=== PATIENT | male | born 1945 | race Caucasian/White ===

== ENCOUNTER 2019-01-16 15:45 | Inpatient (IN) | payer MEDICARE ==
[~2019-01-16] VITALS: Ht 175.3 cm; Wt 75.0 kg
[2019-01-16] MEDS ORDERED: iohexol 350MG/ML 100ml bottle IV ONE (16:36)
[2019-01-16 16:38] LABS: BASOPHILS % (AUTO) 0.4 % (0-1); EOSINOPHILS # (AUTO) 0.1 X10'3 (0-0.9); EOSINOPHILS % (AUTO) 0.8 % (0-6); HEMATOCRIT 38.5 % (42.0-52.0); LYMPHOCYTES # (AUTO) 1.1 X10'3 (1.1-4.8); LYMPHOCYTES % (AUTO) 10.8 % (21-51); MEAN CORPUSCULAR HEMOGLOBIN 33.2 PG (27.0-31.0); MEAN CORPUSCULAR HGB CONC 33.8 g/dL (33.0-36.5); MEAN CORPUSCULAR VOLUME 98.2 FL (78-98); MEAN PLATELET VOLUME 8.9 FL (7.4-10.4); MONOCYTES # (AUTO) 0.7 X10'3 (0-0.9); MONOCYTES % (AUTO) 6.6 % (2-12); NEUTROPHILS # (AUTO) 8.1 X10'3 (1.8-7.7); NEUTROPHILS % (AUTO) 81.4 % (42-75); PLATELET COUNT 171 X10'3 (140-440); RED BLOOD COUNT 3.92 X10'6 (4.70-6.10); RED CELL DISTRIBUTION WIDTH 13.7 % (11.5-14.5)
[2019-01-16] MEDS ORDERED: ipratropium/albuterol 3ml nebule NEB ONE (16:40)
[2019-01-16] MEDS ORDERED: acetaminophen 325mg tablet PO STA (16:50)
[2019-01-16 16:52] LABS: ALANINE AMINOTRANSFERASE 42 U/L (12-78); ALBUMIN 3.8 G/DL (3.4-5.0); ALBUMIN/GLOBULIN RATIO 1.2 (1.1-1.5); ALKALINE PHOSPHATASE 32 IU/L (46-116); ANION GAP 10 (8-16); ASPARTATE AMINO TRANSFERASE 20 U/L (10-37); BLOOD UREA NITROGEN 18 MG/DL (7-18); BUN/CREATININE RATIO 12.2 (5.4-32.0); CALCIUM 8.9 MG/DL (8.5-10.1); CHLORIDE 103 MMOL/L (99-107); CREATININE 1.47 MG/DL (0.60-1.10); GLUCOSE 127 MG/DL (70-104); POTASSIUM 3.3 MMOL/L (3.5-5.1); SODIUM 139 MMOL/L (135-145); TOTAL CARBON DIOXIDE 25.7 MMOL/L (24-32); TOTAL PROTEIN 7.1 G/DL (6.4-8.2); eGFR 47 ML/MIN
[2019-01-16 16:57] LABS: PARTIAL THROMBOPLASTIN TIME 33 SECONDS (22-32)
--- NOTE | 2019-01-16 18:09 | NUR ---
SPOKE WITH DIANE ABOUT K3.[address] ORDER FOR REPLACEMENT.
[2019-01-16] MEDS ORDERED: TRUSOPT EACHEYE (18:26)
[2019-01-16] MEDS ORDERED: LEVA15HF4 INH (18:26)
[2019-01-16] MEDS ORDERED: METOPROLOL PO (18:26)
[2019-01-16] MEDS ORDERED: XAL0.005OS OP (18:26)
[2019-01-16] MEDS ORDERED: TEST1.25 TD (18:26)
[2019-01-16] MEDS ORDERED: ATOR40TA7 PO (18:26)
[2019-01-16] MEDS ORDERED: FLUT1BLS3 PO (18:26)
[2019-01-16] MEDS ORDERED: FLUT16SP2 BOTHNARES (18:26)
[2019-01-16] MEDS ORDERED: LASIX PO (18:26)
[2019-01-16] MEDS ORDERED: OCUVITE PO (18:26)
[2019-01-16] MEDS ORDERED: LACT1CAP65 PO (18:26)
[2019-01-16] MEDS ORDERED: AMOX-422 PO (18:26)
[2019-01-16] MEDS ORDERED: potassium Cl 20 mEq SR tablet PO PRN ×2 (19:55)
[2019-01-16] MEDS ORDERED: ondansetron/PF 4mg/2ml inj IV PRN (19:55)
[2019-01-16] MEDS ORDERED: potassium CL 10mEq/100ml bag 100 ML IV PRN (19:55)
[2019-01-16] MEDS ORDERED: magnesium 2GM in 50ml NS 50 ML IV PRN (19:55)
[2019-01-16] MEDS ORDERED: bisacodyl 10mg suppository rectal RC PRN (19:55)
[2019-01-16] MEDS ORDERED: mag hydrox/Alum hydrox/simeth 30ml oral suspension PO PRN (19:55)
[2019-01-16] MEDS: K and/or MAG REPLACEMENT MC SCH (19:55)
[2019-01-16] MEDS ORDERED: magnesium Cl slow-release 64mg tablet PO PRN (19:55)
[2019-01-16] MEDS ORDERED: magnesium hydroxide 30ml (MOM) UD suspension PO PRN (19:55)
[2019-01-16] MEDS ORDERED: acetaminophen 325mg tablet PO PRN (19:55)
[2019-01-16] MEDS ORDERED: potassium Cl 40MEQ/NS 500ml 500 ML IV PRN (19:55)
[2019-01-16] MEDS ORDERED: magnesium 4gm in 100ml NS 100 ML IV PRN (19:55)
[2019-01-16] MEDS: docusate sod 100mg capsule PO SCH (20:00)
[2019-01-16] MEDS ORDERED: albuterol 2.5 MG/3 ML nebule NEB PRN (20:00)
[2019-01-16] MEDS: dorzolamide 2% ophthalmic drops 10ml EACHEYE SCH (20:00)
[2019-01-16] MEDS ORDERED: non-formulary drug (Levalbuterol Tartrate (Xopenex Hfa) 2 PUFFS) INH SCH (20:00)
[2019-01-16] MEDS: levoFLOXACIN-Levaquin 500mg/D5 100 ML IV SCH (20:36)
[2019-01-16] MEDS: furosemide 20 MG/2 ML vial IV SCH (20:42)
[2019-01-16] MEDS: heparin, porcine 5000 units/ml vial SQ SCH (20:42)
[2019-01-16] MEDS: potassium Cl 20 mEq SR tablet PO SCH (20:54)
[2019-01-16] MEDS ORDERED: atorvastatin 20mg tablet PO SCH (21:00)
[2019-01-16] MEDS: albuterol 2.5 MG/3 ML nebule NEB SCH ×2 (21:36→21:43)
[2019-01-16 22:55] LABS: CLARITY,URINE CLEAR (Clear); COLOR,URINE YELLOW (Yellow); GLUCOSE, URINE NEGATIVE (Neg); KETONES,URINE NEGATIVE (Neg); LEUKOCYTE ESTERASE ,URINE NEGATIVE (Neg); NITRITES, URINE NEGATIVE (Neg); OCCULT BLOOD,URINE NEGATIVE (Neg); PH,URINE 5.5 (4.8-8.0); PROTEIN,URINE NEGATIVE (Neg); UROBILINOGEN,URINE 0.2 E.U/dL (0.2-1.0)
[2019-01-16 23:14] LABS: UA COLLECTION TYPE CLN CATCH MIDSTREAM
[2019-01-17] MEDS: albuterol 2.5 MG/3 ML nebule NEB SCH ×3 (02:42→15:19)
--- NOTE | 2019-01-17 05:11 | NUR ---
morning labs drawn, tylenol po given per orders, pt resting without further c/o
[2019-01-17 05:41] LABS: ALANINE AMINOTRANSFERASE 37 U/L (12-78); ALBUMIN 3.2 G/DL (3.4-5.0); ALKALINE PHOSPHATASE 34 IU/L (46-116); ANION GAP 9 (8-16); ASPARTATE AMINO TRANSFERASE 18 U/L (10-37); BILIRUBIN,TOTAL 0.4 MG/DL (0.1-1.0); BLOOD UREA NITROGEN 14 MG/DL (7-18); CALCIUM 8.2 MG/DL (8.5-10.1); CHLORIDE 105 MMOL/L (99-107); GLUCOSE 132 MG/DL (70-104); POTASSIUM 3.2 MMOL/L (3.5-5.1); SODIUM 139 MMOL/L (135-145); TOTAL CARBON DIOXIDE 25.5 MMOL/L (24-32); TOTAL PROTEIN 6.3 G/DL (6.4-8.2); eGFR 50 ML/MIN
[2019-01-17 05:47] LABS: MAGNESIUM 1.7 MG/DL (1.5-2.4)
--- NOTE | 2019-01-17 07:19 | NUR ---
Patient in room [facility]. I have received report from Yamil CERDA and had the opportunity to ask questions and assume patient care.
[2019-01-17 07:28] LABS: BASOPHILS % (AUTO) 0.7 % (0-1); EOSINOPHILS # (AUTO) 0.1 X10'3 (0-0.9); EOSINOPHILS % (AUTO) 0.9 % (0-6); HEMATOCRIT 35.2 % (42.0-52.0); HEMOGLOBIN 11.9 g/dl (14.0-17.9); LYMPHOCYTES # (AUTO) 1.2 X10'3 (1.1-4.8); LYMPHOCYTES % (AUTO) 17.2 % (21-51); MEAN CORPUSCULAR HEMOGLOBIN 33.2 PG (27.0-31.0); MEAN CORPUSCULAR HGB CONC 33.7 g/dL (33.0-36.5); MEAN CORPUSCULAR VOLUME 98.7 FL (78-98); MEAN PLATELET VOLUME 9.4 FL (7.4-10.4); MONOCYTES # (AUTO) 0.6 X10'3 (0-0.9); MONOCYTES % (AUTO) 9.4 % (2-12); NEUTROPHILS # (AUTO) 4.9 X10'3 (1.8-7.7); NEUTROPHILS % (AUTO) 71.8 % (42-75); PLATELET COUNT 145 X10'3 (140-440); RED BLOOD COUNT 3.57 X10'6 (4.70-6.10); RED CELL DISTRIBUTION WIDTH 13.5 % (11.5-14.5); WHITE BLOOD COUNT 6.8 X10'3 (4.5-11.0)
[2019-01-17] MEDS ORDERED: non-formulary drug (Lactobacillus Acidophilus (Probiotic) 1 EACH) PO SCH (08:00)
[2019-01-17] MEDS ORDERED: budesonide 0.5mg/2ml UD nebule IH SCH (08:00)
[2019-01-17] MEDS: K and/or MAG REPLACEMENT MC SCH (08:00)
[2019-01-17] MEDS ORDERED: fluticasone nasal spray 16GM bottle NS SCH (08:00)
[2019-01-17] MEDS ORDERED: FURO40TA4 PO ×2 (08:12→15:57)
[2019-01-17] MEDS ORDERED: METO-395 PO (08:12)
[2019-01-17] MEDS: levoFLOXACIN-Levaquin 500mg/D5 100 ML IV SCH (08:40)
[2019-01-17] MEDS: docusate sod 100mg capsule PO SCH (08:40)
[2019-01-17] MEDS: furosemide 20 MG/2 ML vial IV SCH (08:40)
[2019-01-17] MEDS: potassium Cl 20 mEq SR tablet PO SCH (08:41)
[2019-01-17] MEDS: heparin, porcine 5000 units/ml vial SQ SCH (08:41)
[2019-01-17] MEDS: dorzolamide 2% ophthalmic drops 10ml EACHEYE SCH (09:51)
[2019-01-17 11:00] VITALS: BP 126/63
[2019-01-17 11:06] VITALS: BP 123/66
[2019-01-17] MEDS ORDERED: LEVO500T89 PO (15:57)
--- NOTE | 2019-01-17 17:30 | NUR ---
PATIENT DISCHARGE WITH NEW MEDICATION AND ADJUSTMENTS TO OLD MEDS. PATIENT EXPRESSED VERBAL UNDERSTANDING OF MEDICATION CHANGES AND TEACHING. PATIENT UNDERSTANDS HE IS TO FOLLOW UP WITH PRIMARY. PATIENT IV WAS TAKEN OUT AT DISCHARGE AND CANULA WAS WHOLE AND INTACT. PATIENT WAS TRANSPORTED HOME WITH ALL BELONGINGS VIA PRIVATE VEHICLE.
[2019-01-17] MEDS ORDERED: lactobacillus rhamnosus 10,000 MMU CELLS/CAPSULE PO SCH (20:00)
[2019-01-18] MEDS ORDERED: levoFLOXACIN 250mg tablet PO SCH (11:00)
== END 2019-01-17 17:18 | disposition home or self-care (01) | DRG 682 ==
LOC: ER 15:45 → SUR 3N 01-17 07:08 → CMPBEDREQ 01-17 15:43
PROVIDERS: ADMIT Internal Medicine; ATTEND Hospitalist
PROC: B32T1ZZ Computerized Tomography (CT Scan) of Left Pulmonary Artery using Low Osmolar Contrast (ICD-10-PCS; principal; 2019-01-16)
PROC: B3201ZZ Computerized Tomography (CT Scan) of Thoracic Aorta using Low Osmolar Contrast (ICD-10-PCS; 2019-01-16)
PROC: B32S1ZZ Computerized Tomography (CT Scan) of Right Pulmonary Artery using Low Osmolar Contrast (ICD-10-PCS; 2019-01-16)
DX: N17.9 Acute kidney failure, unspecified (principal); I50.33 Acute on chronic diastolic (congestive) heart failure; I11.0 Hypertensive heart disease with heart failure; E87.6 Hypokalemia; H66.93 Otitis media, unspecified, bilateral; I95.89 Other hypotension; I48.2 Chronic atrial fibrillation; R06.89 Other abnormalities of breathing; J45.909 Unspecified asthma, uncomplicated; Z86.73 Personal history of transient ischemic attack (TIA), and cerebral infarction without residual deficits; Z87.891 Personal history of nicotine dependence; Z95.818 Presence of other cardiac implants and grafts; Z79.899 Other long term (current) drug therapy; Z88.8 Allergy status to other drugs, medicaments and biological substances
CPT/HCPCS: 36415; 71045; 71275; 80053; 81003; 83605; 83735; 83880; 84145; 84484; 85025; 85610; 85730; 87040; 93005; 93306; 94640; 94760; 99285; G0378; J1644; J1940; J1956; J7626; Q9967